=== PATIENT | female | born 1960 | race American Indian/Alaskan Native ===

== ENCOUNTER 2019-03-23 06:57 | Emergency (ER) | payer OTHER ==
[2019-03-23 07:21] VITALS: BP 149/89; PULSE 74; RESP 18; TEMP 98.8; O2SAT 99
--- NOTE | 2019-03-23 07:57 | C.PDOC ---
History Of Present Illness 59 y/o female presents to the ER complaining of rash under breasts and to navel which has been present for the past 4 days. Patient states that the rash is itchy. Patient denies having fever and chills. Time Seen by Provider: 03/23/19 07:40 Chief Complaint (Nursing): Abnormal Skin Integrity History Per: Patient History/Exam Limitations: no limitations Onset/Duration Of Symptoms: Days Current Symptoms Are (Timing): Still Present Severity: Moderate Past Medical History Reviewed: Historical Data, Nursing Documentation, Vital Signs Vital Signs: Last Vital Signs Temp 98.8 F 03/23/19 07:17 Pulse 74 03/23/19 07:17 Resp 18 03/23/19 07:17 BP 149/89 03/23/19 07:17 Pulse Ox 99 03/23/19 07:17 - Medical History PMH: HTN, Sexually Transmitted Disease (Genital Herpes) Surgical History: Cholecystectomy Family History: States: No Known Family Hx - Social History Hx Alcohol Use: No Hx Substance Use: No - Immunization History Hx Tetanus Toxoid Vaccination: No Hx Influenza Vaccination: Yes Hx Pneumococcal Vaccination: No Review Of Systems Constitutional: Negative for: Fever, Chills Cardiovascular: Negative for: Chest Pain Respiratory: Negative for: Shortness of Breath Skin: Positive for: Rash Physical Exam - Physical Exam Appears: Non-toxic, No Acute Distress Skin: Warm, Dry, Other (erythema around the edge of the umbilicus, erythematous intact skin in creases/skin fold below both breasts) Head: Atraumatic, Normacephalic Eye(s): bilateral: Normal Inspection Chest: Symmetrical Cardiovascular: Rhythm Regular Respiratory: No Rales, No Rhonchi, No Wheezing Neurological/Psych: Oriented x3, Normal Speech, Normal Cognition ED Course And Treatment O2 Sat by Pulse Oximetry: 99 (RA) Pulse Ox Interpretation: Normal Medical Decision Making Medical Decision Making: rash consistent with fungal rash, rx for lotrimin Disposition Counseled Patient/Family Regarding: Diagnosis, Need For Followup, Rx Given - Disposition Referrals: Vince Damon MD [Medical Doctor] - Disposition: HOME/ ROUTINE Disposition Time: 07:52 Condition: GOOD Additional Instructions: Make sure to dry body well after bathing., especially under breasts and navel. Apply Lotrimin powder under breasts 2 times a day and crea to navel area 2 times a day. LOratadine once a day for itch. FOllow up with Dr Damon Prescriptions: Clotrimazole 1% Cream [Lotrimin 1% CREAM] 1 applic TOP BID #1 tube Loratadine 10 mg PO DAILY #14 tablet Miconazole Nitrate [[facility] Miconazorb AF] 1 applic TP BID #1 pow Instructions: Fungal Skin Rash (DC) Forms: [facility] (Arabic), General Discharge Instructions - Clinical Impression Clinical Impression: Rash - PA / KELP OR [employer] G[employer]ER / Resident Statement MD/DO has reviewed & agrees with the documentation as recorded. - Scribe Statement The provider has reviewed the documentation as recorded by the Tiana Celaya Provider Attestation All medical record entries made by the Tammyibsuki were at my direction and personally dictated by me. I have reviewed the chart and agree that the record accurately reflects my personal performance of the history, physical exam, medical decision making, and the department course for this patient. I have also personally directed, reviewed, and agree with the discharge instructions and disposition.
== END 2019-03-23 08:20 | disposition home or self-care (01) ==
LOC: C.ER 06:57
DX: R21 Rash and other nonspecific skin eruption (principal)